=== PATIENT | female | born 1975 | race Caucasian/White ===

== ENCOUNTER 2024-10-05 18:43 | Emergency (ER) | payer BC, OTHER ==
[~2024-10-05] VITALS: Ht 160 cm; Wt 120.2 kg
--- NOTE | 2024-10-05 19:14 | ERN ---
ED Note History of Present Illness Stated Complaint: SOB, COUGH Chief Complaint: Congestion Time Seen by MD: 18:44 Dictation: PATIENT IS A 48-YEAR-OLD FEMALE COMING IN WITH FLU-LIKE SYMPTOMS TO INCLUDE FEVER CHILLS, COUGH WITH GREEN-YELLOW PHLEGM INTERMITTENTLY FOR THE LAST 3-4 DAYS. IN ADDITION SHE SAYS CLEAR RHINITIS WITH MILD SORE THROAT AND BODY ACHES. SHE DENIES NAUSEA VOMITING NO LOSS OF TASTE OR SMELL. SHE DID STATE SHE USED TO USE TOBACCO. HE HAS NOT SMOKED IN SEVERAL YEARS. SHE DOES HAVE A NEBULIZER AT [place], STATES SHE USED ALBUTEROL PRIOR TO ARRIVAL. Allergies: Coded Allergies: No Known Drug Allergies (Verified Allergy, Unknown, 08/18/16) Penicillins (Unverified Allergy, Unknown, 10/05/24) ibuprofen (Unverified Allergy, Unknown, 10/05/24) lisinopril (Unverified Allergy, Unknown, 10/05/24) Past Medical History Past Medical History: Asthma, Hypertension Surgical History: Tonsillectomy, Social History: Other (FORMER TOBACCO ABUSE) History: Not Applicable LMP: Oct 05, 2024 RN Note Reviewed/Agreed w/PFSH: Yes Review of System Dictation CONSTITUTIONAL: NEGATIVE EXCEPT FOR HPI HEAD/FACE: NEGATIVE EXCEPT FOR HPI EENT: NEGATIVE EXCEPT FOR HPI CLEAR RUNNY NOSE WITH SORE THROAT RESPIRATORY: NEGATIVE EXCEPT FOR HPI COUGH WITH SOB, OCCASIONAL YELLOW PHLEGM GASTROINTESTINAL/ABDOMINAL: NEGATIVE EXCEPT FOR HPI GENITOURINARY: NEGATIVE EXCEPT FOR HPI MUSCULOSKELETAL: NEGATIVE EXCEPT FOR HPI INTEGUMENTARY: NEGATIVE EXCEPT FOR HPI NEUROLOGICAL/PSYCH: NEGATIVE EXCEPT FOR HPI HEMATOLOGIC/LYMPHATIC: NEGATIVE EXCEPT FOR HPI ALL SYSTEMS NEGATIVE, EXCEPT NOTED ABOVE. 13 POINT REVIEW OF SYSTEMS ASSESSED AND ALL NEGATIVE EXCEPT FOR ABOVE. Initial Vital Sign VS Vital Signs Date Time Temp Pulse Resp B/P (MAP) Pulse Ox O2 Delivery O2 Flow Rate FiO2 10/05/24 18:50 99.0 111 16 149/95 98 Room Air* 0 21 Physical Exam Dictation VITAL SIGNS REVIEWED GENERAL APPEARANCE: ALERT, ORIENTED X 3, MILD ACUTE DISTRESS, WELL DEVELOPED, NOURISHED. MODERATELY OBESE HEAD AND FACE: NON-TRAUMATIC. EYES: PERRL, PINK CONJUNCTIVAS, EYELID NO TRAUMA, ANTERIOR CHAMBER WITH ARCUS SENILIS. EARS: PINNAS INTACT AND NO SIGNS OF TRAUMA OR ERYTHEMA EAR CANALS CLEAR AND NO DISCHARGE TM NO ERYTHEMA NOSE: CLEAR DISCHARGE, NO BLEEDING. OROPHARYNX: MOUTH NORMAL, TONGUE PINK, PHARYNX CLEAR MODERATE PHARYNGEAL ERYTHEMA, TONSILS NO EXUDATES, NO ABSCESSES NOTED, MUCOUS MEMBRANE MOIST UVULA MIDLINE VOICE IS CLEAR NECK: SUPPLE, NON-TENDER, NO THYROMEGALY, NO MASSES, NO JVD, NO BRUITS BREAST:DEFERRED CHEST:NO TENDERNESS, NO CREPITUS, NO PARADOXICAL MOVEMENT, NO RETRACTIONS LUNGS:CLEAR, WELL-VENTILATED, SYMMETRIC, NO RALES, NO WHEEZING, NO RHONCHI, NO STRIDOR, GOOD BREATH SOUNDS BILATERALLY INTERMITTENT DRY COUGH NOTED HEART: REGULAR RATE, REGULAR RHYTHM, NO MURMUR, NO GALLOPS VASCULAR: NO PERIPHERAL EDEMA, ABDOMEN: SOFT, POSITIVE BOWEL SOUNDS, NONDISTENDED, NO GUARDING, NONTENDER, NO REBOUND, NO MASSES NO HEPATOMEGALY, NO SPLENOMEGALY, NO RENE'S SIGN, NO HERNIAS. RECTAL: DEFERRED GENITAL: DEFERRED NEUROLOGICAL: NORMAL SPEECH, MOTOR FUNCTION INTACT, SENSORY FUNCTION INTACT MUSCULOSKELETAL: NECK NONTENDER, FULL RANGE OF MOTION, BACK NONTENDER, FULL RANGE OF MOTION, EXTREMITIES: NONTENDER, FULL RANGE OF MOTION SKIN: COLOR PINK, DRY, NO TURGOR, NO RASH, NO LACERATIONS, NO ABRASIONS, NO CONTUSIONS. LYMPHATIC: DEFERRED Results (Laboratory/Radiology) Laboratory/Radiology Laboratory Tests Test 10/05/24 20:10 Influenza Type A Antigen Negative For Type A Influenza Type B Antigen Negative For Type B SARS-CoV-2 Antigen (Rapid) PRESUMPTIVE NEGATIVE Group A Streptococcus Rapid negative (NEGATIVE) Labs Reviewed?: Yes ED Course ED Course Orders Procedure Category Date Status Time Dexamethasone 4mg/Ml PHA 10/05/24 Complete 1ml Vial (Dexametha 19:30 Budesonide 0.5 Mg/2 PHA 10/05/24 Complete Ml Inh (Pulmicort 0. 19:11 Covid19 (Sars Antigen LAB 10/05/24 Complete Rapid) 19:11 Influenza Type A & B, LAB 10/05/24 Complete Rapid 19:11 Rapid (Group A Strep) LAB 10/05/24 Complete 19:11 Current Medications Medications (Trade) Dose Ordered Sig/Cathleen Route PRN Reason Start Time Stop Time Status Last Admin Dose Admin Budesonide (Pulmicort 0.5 Mg/2ml) 0.5 mg ONCE STAT IH 10/05/24 19:11 10/05/24 19:13 DC 10/05/24 20:22 Dexamethasone Sodium Phosphate (dexaMETHasone 4MG/ML 1ML VIAL) 8 mg ONCE ONCE IM 10/05/24 19:30 10/05/24 19:31 DC 10/05/24 20:14 Vital Signs Date Time Temp Pulse Resp B/P (MAP) Pulse Ox O2 Delivery O2 Flow Rate FiO2 10/05/24 20:22 115 22 10/05/24 20:14 98.8 99 24 132/65 96 Room Air* 0 21 10/05/24 18:52 99.0 111 16 149/95 98 Room Air 0 10/05/24 18:50 99.0 111 16 149/95 98 Room Air* 0 21 2105/SHORTNESS A BREATH MARKEDLY IMPROVED AFTER TREATMENT. PATIENT WILL BE DISCHARGED HOME WITH BACTERIAL BRONCHITIS. SHE HAS A NEBULIZER WITH ALBUTEROL AT HOME I WE WILL DISCHARGE HER WITH ZITHROMAX TESSALON AND BUDESONIDE. SHE STATES HE HAS A AN APPOINTMENT WITH HER NEW DOCTOR, IN TWO WEEKS FOR Medical Decision Making MDM MEDICAL DECISION-MAKING BASED ON SWABS FOR FLU COVID AND STREP. SWABS WERE ALL NEGATIVE PATIENT TREATED WITH DECADRON AND BUDESONIDE INHALED STATES SHE FEELS MARKEDLY IMPROVED DISCHARGED HOME WITH A AZITHROMYCIN/BUDESONIDE/TESSALON DX & DISP Disposition: Discharge Departure Impression: Primary Impression: Acute bacterial bronchitis Additional Impressions: Cough, Acute bronchospasm Condition: Stable Scripts Benzonatate (Tessalon Perles) 100 Mg Cap 200 MG PO TID for cough, #60 CAP 0 Refills Prov: JERRI MITCHELL NP 10/05/24 Azithromycin (Zithromax Tri-Emmett) 500 Mg Tablet 500 MG PO DAILY for 5 Days, #5 TAB Prov: JERRI MITCHELL HOGSHEAD HAND 10/05/24 Budesonide (Budesonide) 0.5 Mg/2 Ml Ampul.neb 0.5 MG IH BID for 10 Days, #20 UNITS Prov: JERRI MITCHELL NP 10/05/24 Additional Instructions: FOLLOW-UP WITH PRIMARY CARE PROVIDER IN 1 TO 2 DAYS. TAKE MEDICATIONS DIRECTED HERE IN THE EMERGENCY ROOM. OKAY TO CONTINUE HOME MEDICATIONS UNLESS OTHERWISE DISCUSSED DURING YOUR VISIT IN THE EMERGENCY ROOM TODAY. RETURN TO YOUR NEAREST EMERGENCY ROOM IF SYMPTOMS WORSEN OR IF THERE IS NO IMPROVEMENT. CALL 911 IF YOU NEED IMMEDIATE ASSISTANCE. TAKE TYLENOL OR MOTRIN [id number] NEEDED AND IF NO CONTRAINDICATIONS ARE PRESENT. INCREASE ORAL HYDRATION. A WOUND CULTURE OR URINE CULTURE WAS ORDERED HERE IN THE EMERGENCY ROOM DEPARTMENT PLEASE FOLLOW-UP WITH PRIMARY CARE PROVIDER AND ADVISE THEM TO GET REPEAT PORTS FROM OUR FACILITY. IF YOU HAD ANY JEANE WRAP/SPLINTS THAT WERE APPLIED HERE, PLEASE DO NOT REMOVE THEM UNTIL YOU SEE YOUR PRIMARY CARE OR SPECIALTY. CONTINUE YOUR ALBUTEROL INHALER EVERY4 HOURS WHILE AWAKE FOR THE NEXT THREE DAYS. TAKE AZITHROMYCIN DIRECTED UNTIL GONE. TAKE BUDESONIDE DIRECTED TWICE A DAY VIA YOUR NEBULIZER FOR 10 DAYS. SEE YOUR PRIMARY CARE DOCTOR FOR FOLLOW UP Referrals: JOSIE NEAL MD (PCP) Time of Disposition: 21:08 I have reviewed the case, and I agree with, Diagnosis and Plan JERRI MITCHELL NP Oct 05, 2024 19:14
[2024-10-05] MEDS: dexaMETHasone SOD PHOSPHATE 4 MG/ML 1ML VIAL IM ONE (20:14)
[2024-10-05 20:22] VITALS: PULSE 115; RESP 22
[2024-10-05] MEDS: BUDESONIDE 0.5 MG/2 ML INH IH STA (20:22)
[2024-10-05 20:34] LABS: RAPID GROUP A STREP negative (NEGATIVE)
[2024-10-05 20:46] LABS: INFLUENZA TYPE A Negative For Type A (NEGATIVE); INFLUENZA TYPE B Negative For Type B (NEGATIVE)
[2024-10-05 20:49] LABS: COVID19 (SARS ANTIGEN RAPID) PRESUMPTIVE NEGATIVE (NEGATIVE)
[2024-10-05] MEDS ORDERED: BUDE0.5A3 IH (21:11)
[2024-10-05] MEDS ORDERED: BENZ-39 PO (21:11)
[2024-10-05] MEDS ORDERED: AZIT500T2 PO (21:11)
[2024-10-05 21:13] VITALS: BP 127/68; PULSE 97; RESP 22; TEMP 98.1; O2SAT 96
== END 2024-10-05 21:22 | disposition home or self-care (01) ==
LOC: EDH 18:43
DX: J20.8 Acute bronchitis due to other specified organisms (principal); R05.9 Cough, unspecified; B96.89 Other specified bacterial agents as the cause of diseases classified elsewhere; J45.909 Unspecified asthma, uncomplicated; I10 Essential (primary) hypertension; Z79.51 Long term (current) use of inhaled steroids; Z88.0 Allergy status to penicillin; Z88.6 Allergy status to analgesic agent; Z88.8 Allergy status to other drugs, medicaments and biological substances; Z90.89 Acquired absence of other organs; Z20.822 Contact with and (suspected) exposure to COVID-19
CPT/HCPCS: 99283; 87426; 87880; 87804 ×2; 96372; 94640; J1100